=== PATIENT | male | born 1995 | race Caucasian/White ===

== ENCOUNTER 2017-03-14 18:03 | Emergency (ER) | payer OTHER ==
[~2017-03-14] VITALS: Ht 182.8 cm; Wt 65.8 kg
[~2017-03-14 18:03] MED LIST: ALBUTEROL0.09 MG/A2 INH; AMOXICILLIN500 MG PO; AUGMENTIN 875 M1 TAB PO; CIPRODEX 0.3%-7.5 ML OT; KEFLEX500 MG PO; MOTRIN400 MG PO; MOTRIN800 MG PO; NKHM; ROBITUSSIN DM120 ML PO; TESSALON PERLE100 M1 PO; TYLENOL W/CODEI1 TA4 PO; ZITHROMAX Z PA250 MG PO
[2017-03-14] MEDS ORDERED: VISTARIL25 M2 PO (18:44)
== END 2017-03-14 18:50 | disposition home or self-care (01) ==
LOC: ED 18:03
DX: F41.9 Anxiety disorder, unspecified (principal); F17.200 Nicotine dependence, unspecified, uncomplicated

== ENCOUNTER 2017-03-27 02:25 | Emergency (ER) | payer OTHER ==
[~2017-03-27] VITALS: Ht 182.8 cm; Wt 65.8 kg
[~2017-03-27 02:25] MED LIST changes: +VISTARIL25 M2 PO
[2017-03-27] MEDS ORDERED: HYDROXYZINE HCL25 MG PO ×2 (02:55→03:03)
== END 2017-03-27 03:21 | disposition home or self-care (01) ==
LOC: ED 02:25
DX: F41.9 Anxiety disorder, unspecified (principal); F17.200 Nicotine dependence, unspecified, uncomplicated

== ENCOUNTER 2017-04-01 18:21 | Emergency (ER) | payer OTHER ==
[~2017-04-01] VITALS: Ht 182.8 cm; Wt 65.8 kg
[~2017-04-01 18:21] MED LIST changes: +HYDROXYZINE HCL25 MG PO
== END 2017-04-01 18:47 | disposition home or self-care (01) ==
LOC: ED 18:21
DX: F41.9 Anxiety disorder, unspecified (principal); F17.200 Nicotine dependence, unspecified, uncomplicated

== ENCOUNTER 2018-05-27 21:25 | Emergency (ER) | payer SELFPAY ==
[~2018-05-27] VITALS: Ht 182.8 cm; Wt 65.8 kg
[2018-05-27] MEDS ORDERED: Motrin,Rufen800 MG PO (22:48)
== END 2018-05-27 22:57 | disposition home or self-care (01) ==
LOC: ED 21:25
DX: S63.501A Unspecified sprain of right wrist, initial encounter (principal); F17.200 Nicotine dependence, unspecified, uncomplicated; W19.XXXA Unspecified fall, initial encounter; Y93.67 Activity, basketball; Y92.89 Other specified places as the place of occurrence of the external cause; Y99.9 Unspecified external cause status

== ENCOUNTER 2018-10-16 13:02 | Emergency (ER) | payer SELFPAY ==
[~2018-10-16] VITALS: Wt 72.6 kg
--- NOTE | ~2018-10-16 | EKG ---
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
[~2018-10-16 13:02] MED LIST changes: +Motrin,Rufen800 MG PO
[2018-10-16 13:26] LABS: BILIRUBIN 1+ (NEGATIVE); BLOOD NEGATIVE (NEGATIVE); CLARITY SL CLOUDY (CLEAR); COLOR YELLOW (YELLOW); GLUCOSE NEGATIVE (NEGATIVE); KETONE 1+ (NEGATIVE); LEUKO ESTERASE NEGATIVE (NEGATIVE); NITRITE NEGATIVE (NEGATIVE); SPECIFIC GRAVITY >= 1.030 (1.005-1.030)
[2018-10-16 13:35] LABS: URINE AMPHETAMINES < 1000 (1000ng/ml); URINE BARBITURATES < 200 (200ng/ml); URINE BENZODIAZEPINES < 200 (200ng/ml); URINE CANNABINOIDS (THC) > 50 (50ng/ml); URINE COCAINE < 300 (300ng/ml); URINE METHADONE < 300 (300ng/ml); URINE OPIATES < 300 (300ng/ml)
[2018-10-16 13:38] LABS: BACTERIA TRACE; MUCOUS 2+
[2018-10-16 13:39] LABS: URINE PHENCYCLIDINE < 25 (25ng/ml)
[2018-10-16 13:42] LABS: BASO % 0.3 % (0.0-1.0); EOS % 0.2 % (1.0-4.0); HEMATOCRIT 46.6 % (42.0-52.0); HEMOGLOBIN 15.7 g/dl (14.0-18.0); LYMPH # 1.7 10*3/uL (1.3-4.4); LYMPH % 25.7 % (27.0-41.0); MEAN CELL VOLUME 90.8 fl (80.0-94.0); MEAN CORPUSCULAR HGB 30.6 pg (27.0-31.0); MEAN CORPUSCULAR HGB CONC 33.7 g/dl (33.0-37.0); MEAN PLATELET VOLUME 9.7 fl (9.6-12.3); MONO # 0.6 10*3/uL (0.1-1.0); MONO % 8.4 % (3.0-9.0); NEUT # 4.3 10*3/uL (2.3-7.9); NEUT % 65.1 % (47.0-73.0); PLATELET COUNT AUTOMATED 204 10*3/uL (130-400); RED BLOOD COUNT 5.13 10*6/uL (4.50-5.90); RED CELL DISTRI WIDTH 12.4 % (0-14.5); WHITE BLOOD COUNT 6.6 10*3/uL (4.8-10.8)
[2018-10-16 14:01] LABS: ALKALINE PHOSPHATASE 40 U/L (45-117); BUN 14 mg/dl (7-24); CHLORIDE 106 mmol/L (98-107); POTASSIUM 3.6 mmol/L (3.5-5.1); SGOT/AST 22 IU/L (3-35); SGPT/ALT 21 U/L (12-78); SODIUM 141 mmol/L (136-145); TOTAL PROTEIN 7.7 gm/dL (6.4-8.2)
[2018-10-16 14:03] LABS: ACETAMINOPHEN (TYLENOL) < 5.0 ug/ml (10-30); ETHYL ALCOHOL < 3.0 mg/dl (<3)
== END 2018-10-16 17:06 | disposition home or self-care (01) ==
LOC: ED 13:02
PROVIDERS: Emergency Medicine
DX: F32.9 Major depressive disorder, single episode, unspecified (principal); F41.9 Anxiety disorder, unspecified; F17.200 Nicotine dependence, unspecified, uncomplicated

== ENCOUNTER 2020-05-07 20:37 | Emergency (ER) | payer OTHER ==
[~2020-05-07] VITALS: Ht 182.8 cm; Wt 65.8 kg
== END 2020-05-07 23:20 | disposition home or self-care (01) ==
LOC: ED 20:37
DX: S62.001A Unspecified fracture of navicular [scaphoid] bone of right wrist, initial encounter for closed fracture (principal); F17.200 Nicotine dependence, unspecified, uncomplicated; W18.39XA Other fall on same level, initial encounter; Y93.89 Activity, other specified; Y92.89 Other specified places as the place of occurrence of the external cause; Y99.8 Other external cause status

== ENCOUNTER 2025-02-07 18:33 | Emergency (ER) | payer SELFPAY ==
[~2025-02-07] VITALS: Ht 182.8 cm; Wt 68.0 kg
== END 2025-02-07 19:54 | disposition home or self-care (01) ==
LOC: ED 18:33
DX: S39.011A Strain of muscle, fascia and tendon of abdomen, initial encounter (principal); F32.A Depression, unspecified; F41.9 Anxiety disorder, unspecified; X50.0XXA Overexertion from strenuous movement or load, initial encounter; Y93.89 Activity, other specified; Y92.89 Other specified places as the place of occurrence of the external cause; Y99.8 Other external cause status

== ENCOUNTER 2025-10-02 19:07 | Emergency (ER) | payer SELFPAY ==
[~2025-10-02] VITALS: Ht 182.8 cm; Wt 68.0 kg
[2025-10-02 20:50] LABS: BASO # 0.0 10*3/uL (0.0-0.1); BASO % 0.7 % (0.0-1.0); EOS # 0.1 10*3/uL (0.0-0.4); EOS % 1.4 % (1.0-4.0); MEAN CELL VOLUME 88.9 fl (80.0-94.0); MEAN CORPUSCULAR HGB 30.4 pg (27.0-31.0); MEAN PLATELET VOLUME 9.7 fl (9.6-12.3); MONO # 0.5 10*3/uL (0.1-1.0); MONO % 8.3 % (3.0-9.0); NEUT # 2.8 10*3/uL (2.3-7.9); NEUT % 48.4 % (47.0-73.0); NUCLEATED RED BLOOD CELL 0.0 % (0.0-0.0); NUCLEATED RED BLOOD CELL 0.0 10*3/uL (0.0-0.0); PLATELET COUNT AUTOMATED 234 10*3/uL (130-400); RED CELL DISTRI WIDTH 12.2 % (0-14.5)
[2025-10-02 21:10] LABS: BUN 16 mg/dl (9-23)
== END 2025-10-02 22:00 | disposition home or self-care (01) ==
LOC: ED 19:07
PROVIDERS: Nurse Practitioner Family
DX: R07.89 Other chest pain (principal); R51.9 Headache, unspecified; F41.9 Anxiety disorder, unspecified; F32.A Depression, unspecified